=== PATIENT | male | born 1960 | race African-American/Black ===

== ENCOUNTER 2023-04-04 18:33 | Emergency (ER) | payer MEDICAID ==
[~2023-04-04] VITALS: Ht 170.2 cm; Wt 115.2 kg
[2023-04-04] MEDS ORDERED: KETOROLAC TROMETH 60MG/2ML VIAL IM ONE (18:45)
[2023-04-04] MEDS ORDERED: IBUP-1455 PO (20:09)
[2023-04-04] MEDS ORDERED: HYDR-4798 PO (20:09)
[2023-04-04 20:44] VITALS: BP 128/75; PULSE 100; RESP 18; TEMP 98; O2SAT 95
== END 2023-04-04 21:05 | disposition home or self-care (01) ==
LOC: ER 18:33
DX: S83.8X2A Sprain of other specified parts of left knee, initial encounter (principal); E11.9 Type 2 diabetes mellitus without complications; W18.39XA Other fall on same level, initial encounter; Y93.89 Activity, other specified; Y92.096 Garden or yard of other non-institutional residence as the place of occurrence of the external cause; Y99.0 Civilian activity done for income or pay
CPT/HCPCS: 73562; 96372; 99283; J1885

== ENCOUNTER 2023-05-01 20:25 | Emergency (ER) | payer MEDICAID ==
[~2023-05-01 20:25] MED LIST: HYDR-4798 PO; IBUP-1455 PO
[2023-05-01 21:23] VITALS: PULSE 110
[2023-05-01 22:38] VITALS: BP 123/86; RESP 18; O2SAT 95
[2023-05-01] MEDS ORDERED: ACETAMINOPHEN 500 MG TAB PO ONE (23:00)
[2023-05-02] MEDS ORDERED: HYDR-4902 PO (01:12)
== END 2023-05-02 02:23 | disposition home or self-care (01) ==
LOC: ER 20:25
DX: S82.892A Other fracture of left lower leg, initial encounter for closed fracture (principal); S83.92XA Sprain of unspecified site of left knee, initial encounter; E11.9 Type 2 diabetes mellitus without complications; W18.2XXA Fall in (into) shower or empty bathtub, initial encounter; Y93.89 Activity, other specified; Y92.89 Other specified places as the place of occurrence of the external cause; Y99.8 Other external cause status
CPT/HCPCS: 29515; 72070; 73560; 73600

== ENCOUNTER 2024-11-09 03:21 | Emergency (ER) | payer MEDICAID ==
[~2024-11-09] VITALS: Ht 170.2 cm; Wt 115.2 kg
[2024-11-09 03:38] VITALS: TEMP 97.6
[2024-11-09 03:40] VITALS: O2SAT 94
--- NOTE | 2024-11-09 03:56 | ED.PDOC ---
History of Present Illness HPI Comments This is a 64-year-old, morbidly obese male that is brought in by ambulance for complaint of right chest wall and rib pain status post multiple mechanical falls, today. Per EMS report, patient endorses on having 2 mechanical falls, this morning. He states on having his 1st fall at 0030, while taking a shower, where he slipped and fell onto his right side. Patient then states on getting up and continuing on with his day until he became, suddenly, lightheaded when returning to his bathroom 45 minutes later and falling onto his right side, again, after failing to catch himself with nearby shower handle. Patient denies sustaining any head or additional injuries in addition to losing consciousness then and rated pain, initially, an 8/10. At time of initial assessment, patient endorses on pain, now, being a 2/10 after being given 100mcg of fentanyl en route by EMS. Patient denies having any headache, dizziness, weakness, numbness, tingling, or other associated symptoms were modifiers at this time. Chief Complaint: Fall Injury Time Seen by MD: 03:40 Primary Care Provider: Angel Reviewed Notes: Nurses Notes, Job Placement Specialist Notes, Medications, Allergies Allergies: Coded Allergies: NO KNOWN ALLERGIES (Unverified , 01/28/16) Home Meds Active Scripts Hydrocodone-Acetaminophen (Hydrocodone Bitartrate/AC 10-325 mg) 1 Tab Tab, 1 TAB PO Q8HP PRN, #10 TAB Prov:ERICA MENDIOLA PAC 04/04/23 Ibuprofen Micronized (Ibuprofen) 800 Mg Tab, 800 MG PO Q8HP PRN, #20 TAB Prov:ERICA MENDIOLA PAC 04/04/23 Information Source: Patient, Emergency Med Personnel Mode of Arrival: EMS Severity: Moderate Timing: Hours Duration: Since onset Prehospital treatment: 12 Lead EKG, Milk Tester, Pain Meds (100 mcg of fentanyl) Past Medical History PAST MEDICAL HISTORY: DM Past Medical History (Other): Morbid obesity Surgical History: Denies all surgeries Family History Family History: Unknown Social History Smoker: Non-Smoker Alcohol: Denies ETOH Use Drugs: Denies Drug Use Lives In: Home All Other Systems: Reviewed and Negative (Comprehensive systems review obtained and negative except for what is stated in the HPI.) Physical Exam General Appearance: No Apparent Distress, Obese HEENT: Normal ENT Inspection, Pharynx Normal, TMs Normal Neck: Full Range of Motion, Non-Tender, Normal, Normal Inspection Respiratory: Chest Non-Tender, Lungs Clear, No Accessory Muscle Use, No Respi ratory Distress, Normal Breath Sounds Cardiovascular: No Edema, No JVD, No Murmur, No Gallop, Normal Peripheral Pulses, Regular Rate/Rhythm Breast Exam: Deferred Gastrointestinal: No Organomegaly, Non Tender, No Pulsatile Mass, Normal Bowel Sounds, Soft Genitalia: Deferred Pelvic: Deferred Rectal: Deferred Extremities: No calf tenderness, Normal capillary refill, Normal inspection, Normal range of motion, Non-tender, No pedal edema Musculoskeletal : Location: Right Extremity Location: Chest Apperance: Normal, Tenderness Neurologic: Alert, casting machine operator automatic II-XII nml as Tested, No Motor Deficits, Normal Affect, Normal Mood, No Sensory Deficits Cerebellar Function: Normal Reflexes: Normal Skin: Dry, Normal Color, Warm Lymphatic: No Adenopathy Was a procedure done? Was a procedure done?: No EKG EKG : Pulse Rate (adult): 99 Mobile: Normal Cardiac Rhythm: NSR Block: None Hypertrophy: None ST: Normal Differential Dx Considerations may include: Fractures, contusions, bruising, muscle sprain, history of frequent falls, among others X-Ray, Labs, Meds, VS Vital Signs Date Time Temp Pulse Resp B/P (MAP) Pulse Ox O2 Delivery O2 Flow Rate FiO2 11/09/24 03:56 99 11/09/24 03:40 99 11/09/24 03:38 97.6 92 15 133/75 (94) 96 97.6 11/09/24 03:30 97.6 100 14 133/79 (97) [address] [place] [address] Ph: [phone] DIAGNOSTIC IMAGING Diagnostic Imaging Report : [id number] Signed PATIENT: BRIT TOBIN ACCT: [id number] UNIT: [id number] : 1960 LOC: ER ROOM / BED: / AGE / SEX: 64 / M ADM STATUS: REG ER SERVICE [id number] ORDERING PHYSICIAN: ELLI MATHIAS MD PROCEDURE(s): RRIBS - R RIB XRAY REASON: FALL ORDER NUMBER(s): [id number], ACCESSION NUMBER(s): [id number] EXAMINATION: XY R RIB XRAY INDICATION: FALL COMPARISON: None TECHNIQUE: Frontal view of the chest and oblique views of the right ribs history FINDINGS: Mild hazy bilateral opacities. No pleural effusion or significant pneumothorax. Normal cardiomediastinal silhouette. Acute nondisplaced displaced right 8th rib fracture. IMPRESSION: 1. No acute cardiopulmonary disease. Acute nondisplaced right 8th rib fracture. ATED BY: KARLA BABCOCK MD DICTATED DATE/TIME: 11/09/24512 SIGNED BY: KARLA BABCOCK MD SIGNED DATE/TIME: 11/09/24512 CC: Time of 1ST Reevaluation: 04:10 Reevaluation 1ST: Unchanged Patient Education/Counseling: Diagnosis, Treatment Family Education/Counseling: No Family Present Additional Information Previous visit documents reviewed: 04/11/2023 The following tests were ordered, and results were reviewed by me: EKG, CXR, right rib x-ray Additional Information was gathered from interviewing the following independent historians: EMS I reviewed and agreed with the following test results read by other providers: CXR, right rib x-ray I discussed treatment and results with medical personnel and: patient Departure 1 Departure Time of Disposition: 05:37 (Patient has a right 8th rib fracture. No other injuries. We will discharge patient home with outpatient follow up) Impression: Primary Impression: Rib fracture Qualified Codes: S22.31XA - Fracture of one rib, right side, initial encounter for closed fracture Disposition: HOME / SELF CARE / HOMELESS Condition: Stable Additional Instructions: You broke your right 8th rib. It is important that you continue to take deep breaths. You were prescribed lidocaine patches. For pain you can take the followinam: Ibuprofen 400mg with food Noon: Acetaminophen 1000mg 4pm: Ibuprofen 400mg with food 8pm: Acetaminophen 1000mg You should follow up with your regular doctor within one week to ensure you are doing better. If your symptoms worsen or you have any other concerns then please return to the ER. e-Prescriptions Lidocaine (LIDODERM 5% TOPICAL PATCH) 1 Patch Ph 1 PATCH TOP DAILY PRN for 14 Days, #30 PATCH 1 Refill Prov: ELLI MATHIAS MD 11/09/24 Discharged With: Self Critical Care Note Critical Care Time?: No Stability Stability form required: No Heart Score Heart Score: Heart Score Response (Comments) Value History N/A 0 EKG N/A 0 Age N/A 0 Risk Factors N/A 0 Troponin N/A 0 Total 0 I personally scribed for ELLI MATHIAS MD ([email or web address]) on 11/09/24 at 03:56. Electronically submitted by Nishant Mccoy ([email or web address]). I personally scribed for ELLI MATHIAS MD ([email or web address]) on 11/09/24 at 05:33. Electronically submitted by Nishant Mccoy ([email or web address]). ELLI MATHIAS MD Nov 09, 2024 03:56
--- NOTE | 2024-11-09 04:30 | ECG ---
[facility] Test Date: 2024-11-09 Test Time: 03:40:30 Pat Name: BRIT TOBIN Department: ER Room: Gender: M Doctor Podiatric Medicine: ER : 1960 Requested By: ELLI MATHIAS Order Number: [id number] Reading MD: Dilan Henriquez Measurements Intervals [place] Rate: 99 P: 20 [place]: 182 QRS: -52 QRSD: 94 T: 29 QT: 338 QTc: 434 Interpretive Statements Sinus rhythm Left anterior fascicular block Abnormal R-wave progression, late transition Borderline ST elevation, lateral leads Electronically Signed On 11-11-2024 17:57:56 PST by Dilan Henriquez Please click the below link to view image of tracing.
--- NOTE | 2024-11-09 05:15 | DVH ---
EXAMINATION: XY R RIB XRAY INDICATION: FALL COMPARISON: None TECHNIQUE: Frontal view of the chest and oblique views of the right ribs history FINDINGS: Mild hazy bilateral opacities. No pleural effusion or significant pneumothorax. Normal cardiomediast inal silhouette. Acute nondisplaced displaced right 8th rib fracture. IMPRESSION: 1. No acute cardiopulmonary disease. Acute nondisplaced right 8th rib fracture.
[2024-11-09] MEDS ORDERED: LIDO5DIS21 TOP (05:39)
[2024-11-09 06:00] VITALS: BP 96/70; PULSE 92; RESP 12; O2SAT 94
== END 2024-11-09 06:13 | disposition home or self-care (01) ==
LOC: EDBD 03:21 → ER 03:24
DX: S22.31XA Fracture of one rib, right side, initial encounter for closed fracture (principal); E11.9 Type 2 diabetes mellitus without complications; W18.2XXA Fall in (into) shower or empty bathtub, initial encounter; Y93.E1 Activity, personal bathing and showering; Y92.89 Other specified places as the place of occurrence of the external cause; Y99.8 Other external cause status
CPT/HCPCS: 71101; 93005

== ENCOUNTER 2025-01-29 20:45 | Emergency (ER) | payer MEDICAID ==
[~2025-01-29] VITALS: Ht 170.2 cm; Wt 117.1 kg
[~2025-01-29 20:45] MED LIST changes: +LIDO5DIS21 TOP
[2025-01-29 21:05] VITALS: TEMP 97.8
--- NOTE | 2025-01-29 21:28 | ED.PDOC ---
HPI (NEURO) HPI Comments Vitals: Temp: 97.8 F BP: 140/69 HR: 97 SPO2: 97% RA RR: 18 Past medical history: DM, kidney disease Past surgical history: Denies TOBIN: RIGHT SIDED HEADACHE AND TOOTHACHE HPI: Poor Historian. 64-year-old male presents to emergency department for evaluation of right-sided headache that started yesterday. Pain is constant nonradiating. No other associated symptoms. No alleviating or precipitating factors. Denies any neurological deficits or complaints. Patient also complains of his right lower molar tooth pain. The pain is throbbing and he thinks it might be contributing to his headache. REVIEW OF SYSTEMS: CONSTITUTIONAL: Denies acute: fever, diaphoresis, chills, generalized weakness. HEAD: Denies acute: , photophobia Eyes: Denies acute: Double vision, vision loss, eye pain, eye discharge. EARS: Denies acute: tinnitus, hearing loss, ear discharge, ear pain, THROAT: Denies acute: sore throat, swelling, difficulty swallowing , pain with swallowing, change in voice. NECK: Denies acute: neck pain, neck swelling, stiff neck. HEART: Denies acute : chest pain, palpitations, LUNGS: Denies acute: SOB, wheezing, cough, hemoptysis ABDOMEN: Denies acute: abdominal pain, Nausea, Vomiting, diarrhea, melena , hematemesis, hematochezia SKIN: Denies acute: rash, redness, lesions, itchiness. EXTREMITIES: Denies acute: calf pain, numbness, tingling, weakness, denies pain in extremity. Denies acute: Low back pain. Neuro: Denies acute: focal neurological deficit, motor or sensory focal neurological deficit, tremors, seizure like activity, confusion, dizziness, change in mental status, loss of bowel or bladder function, cauda equina like symptoms. : Denies acute: dysuria, hematuria, flank pain, increase in urinary frequency. PSYCH: Denies acute: hallucination, suicidal ideation, homicidal ideation. PHYSICAL EXAM: General: -----mild---acute distress, awake and alert. Head: normocephalic, atraumatic. Neck: supple, trachea is midline, no swelling. Throat: Normal phonation. No obstruction, no erythema. Evaluation of the focal area of pain. Patient points to his last molar tooth on the right jaw that is tender to palpation. No associated erythema or apparent purulent discharge. No swelling. Poor dentition and cavities noted in the affected tooth. Eyes:, no erythema, no purulent discharge, no proptosis, no icterus. Heart: regular rate, regular rhythm, no significant murmur appreciated. Lungs: no apparent respiratory distress, Able to speak in full sentences. No wheezing, no rhonchi, no crackles. No stridors Clear to auscultation bilaterally. Abdomen: non tender to palpation, non distended, soft, no guarding, no rebound, + bowel sounds. Obese Neuro: Awake, Alert, oriented to name, self, situation, follows commands GCS=15. Speech is normal. Skin: no petechia, no purpura, no cyanosis, non-pale, not jaundice. Lower extremities: --1/4 b/l- Pitting edema no deformity, no focal swelling, no calf TTP. Makes eye contact. moves all four extremities. Face: no apparent facial droop. Ambulating in the ED independently. No nuchal rigidity, Kernig's sign, Brudzinski's sign, no meningeal signs. ED COURSE: Chief Complaint: Headache Time Seen by MD: 21:15 Primary Care Provider: Angel Reviewed Notes: Nurses Notes, Allergies Information Source: Patient Mode of Arrival: Ambulatory Past Medical History PAST MEDICAL HISTORY: DM Surgical History: Denies all surgeries Family History Family History: Unknown Social History Smoker: Non-Smoker Alcohol: Denies ETOH Use Drugs: Denies Drug Use Lives In: Home Was a procedure done? Was a procedure done?: No Differential Diagnosis (SZ) Seizure: N/A Headache: Cluster, Migraine, Subdural Hemorrhage, Other (DDX include Sinusitis, migraine, meningitis, hypertension, intracranial mass/bleed, stroke, radiculopathy, vertebrobasillary insufficiency, cephalgia, pseudotumor cerebri, cerebellar ischemia/infarct, carotid stenosis, lacunar infarct, vertebral/carotid artery dissection, hydrocephalus, temporal arteritis, dura venous sinus thrombosis.) X-Ray, Labs, Meds, VS Vital Signs Date Time Temp Pulse Resp B/P (MAP) Pulse Ox O2 Delivery O2 Flow Rate FiO2 01/29/25 21:55 82 16 112/67 (82) 96 01/29/25 21:05 97.8 97 18 140/69 (92) 97 97.8 Lab Test 01/29/25 22:16 01/29/25 21:26 Range/Units Troponin I High Sensitivity < 3 L < 3 L </=54 ng/L White Blood Count 6.4 4.4-10.8 10^3/uL Red Blood Count 5.57 4.5-5.90 10^6/uL Hemoglobin 14.4 13.5-17.5 g/dL Hematocrit 45.6 41.0-53.0 % Mean Corpuscular Volume 81.9 80.0-100.0 fL Mean Corpuscular Hemoglobin 25.9 L 28.0-32.0 pg Mean Corpuscular Hemoglobin Concent 31.6 L 32.0-36.0 g/dL Red Cell Distribution Width 15.9 H 11.8-14.3 % Platelet Count 267 140-450 10^3/uL Mean Platelet Volume 7.8 6.9-10.8 fL Neutrophils (%) (Auto) 56.2 37.0-80.0 % Lymphocytes (%) (Auto) 31.1 10.0-50.0 % Monocytes (%) (Auto) 10.3 0.0-12.0 % Eosinophils (%) (Auto) 0.9 0.0-7.0 % Basophils (%) (Auto) 1.5 0.0-2.0 % Neutrophils # (Auto) 3.6 1.6-8.6 10 ^3/uL Lymphocytes # (Auto) 2.0 0.4-5.4 10 ^3/uL Monocytes # (Auto) 0.7 0-1.3 10 ^3/uL Eosinophils # (Auto) 0.1 0-0.8 10 ^3/uL Basophils # (Auto) 0.1 0-0.2 10 ^3/uL Nucleated Red Blood Cells 0.0 % Erythrocyte Sedimentation Rate 3 0-20 mm/hr Sodium Level 142 136-145 mmol/L Potassium Level 4.7 3.5-5.1 mmol/L Chloride Level 105 98-107 mmol/L Carbon Dioxide Level 29 20-31 mmol/L Anion Gap 8 5-15 Blood Urea Nitrogen 18 9-23 mg/dL Creatinine 2.18 H 0.700-1.30 mg/dL Glomerular Filtration Rate Calc 33 >90 mL/min BUN/Creatinine Ratio 8.3 L 10.0-20.0 Serum Glucose 236 H 74-106 mg/dL Calcium Level 9.5 8.7-10.4 mg/dL Total Bilirubin 0.2 0.2-1.0 mg/dL Aspartate Amino Transferase (AST) 13 13-40 U/L Alanine Aminotransferase (ALT) 11 7-40 U/L Alkaline Phosphatase 47 46-116 U/L Total Protein 7.0 5.7-8.2 g/dL Albumin 4.3 3.2-4.8 g/dL Current Medications Medications (Trade) Dose Ordered Sig/Crow Route Start Time Stop Time Status Last Admin Acetaminophen/ Hydrocodone Bitart ([place] 5/325MG Tab) 1 tab ONCE ONCE PO 01/29/25 21:15 01/29/25 21:16 DC 01/29/25 23:10 [place] [address] Ph: [phone] DIAGNOSTIC IMAGING Diagnostic Imaging Report : [id number] Signed PATIENT: BRIT TOBIN ACCT: [id number] UNIT: [id number] : 1960 LOC: ER ROOM / BED: / AGE / SEX: 64 / M ADM STATUS: REG ER SERVICE 00 ORDERING PHYSICIAN: LEANDRO VERA DO PROCEDURE(s): HWOCT - HEAD WITHOUT CONTRAST REASON: R HEADACHE ORDER NUMBER(s): [id number], ACCESSION NUMBER(s): [id number] EXAM: CT HEAD WITHOUT CONTRAST INDICATION: R HEADACHE TECHNIQUE: CT of the head without intravenous contrast. Radiation Dose Information: CT Dose: CTDI volume is 58.07 mGy. Dose-length product is 1047.05Dose Length] mGy*cm The dose indicators for CT are the volume Computed Tomography (CT) Dose Index (CTDIvol) and the Dose Length Product (DLP), and are measured in units of mGy and mGy-cm, respectively. These indicators are not patient dose, but values generated from the CT scanner acquisition factors. The report includes radiation exposure data for exposures received during this examination. COMPARISON: None FINDINGS: There is no evidence of acute intracranial hemorrhage, extra-axial collection, mass effect, midline shift, herniation or hydrocephalus. The ventricles, sulci and cisterns are age appropriate. The case-white differentiation is intact. Patchy periventricular and subcortical white matter hypoattenuation is nonspecific but may be related to small vessel ischemic disease. The visualized paranasal sinuses and mastoid air cells are clear. The surrounding soft tissues and osseous structures are unremarkable. IMPRESSION: 1. No acute intracranial hemorrhage. 2. No CT findings of paranasal sinus or mastoid disease. 3. No CT findings of territorial ischemia. ATED BY: BROOKE CALVERT Jr., DO DICTATED DATE/TIME: 01/29/252129 SIGNED BY: BROOKE CALVERT Jr., DO SIGNED DATE/TIME: 01/29/252129 CC: [place] [address] Ph: [phone] DIAGNOSTIC IMAGING Diagnostic Imaging Report : [id number] Signed PATIENT: BRIT TOBIN ACCT: [id number] UNIT: [id number] : 1960 LOC: ER ROOM / BED: / AGE / SEX: 64 / M ADM STATUS: REG ER SERVICE 09 ORDERING PHYSICIAN: LEANDRO VERA DO PROCEDURE(s): FAC2C - MAXILLOFACIAL WITHOUT REASON: FACIAL PAIN ORDER NUMBER(s): [id number], ACCESSION NUMBER(s): [id number] HISTORY: FACIAL PAIN TECHNIQUE: Nonenhanced axial images through the facial bones with coronal and sagittal MPR. Radiation Dose Information: CT Dose: CTDI volume is 66.97 mGy. Dose-length product is 1279.92 mGy*cm COMPARISON: None FINDINGS: Soft tissues: Unremarkable Mandible: Unremarkable Maxilla: Unremarkable Zygomatic arches: Unremarkable Nasal bone: Unremarkable Orbits: Unremarkable Paranasal Sinuses / Mastoid air cells / Middle ear cavities: Clear IMPRESSION: No facial fracture. Radiation optimization: All CT scans at this facility use at least one of these dose optimization techniques: automated exposure control mA and/or kV adjustment per patient size (includes targeted exams where dose is matched to clinical indication) or iterative reconstruction. ATED BY: SHAYAN HAQUE MD DICTATED DATE/TIME: 01/29/252138 SIGNED BY: SHAYAN HAQUE MD SIGNED DATE/TIME: 01/29/252138 CC: Time of 1ST Reevaluation: 21:27 Reevaluation 1ST: Unchanged Patient Education/Counseling: Diagnosis, Treatment, Prognosis Family Education/Counseling: No Family Present Comments Patient presented with the above HPI.--headache likely secondary to tooth pain----workup was initiated. patient was found with the above mentioned diagnosis. the following medications were ordered: please refer to order lists of meds and tests obtained by myself Dr. Vera. Patient ED course and VS have been stabilized. Patient has been reassessed in the ED and remained in a stable condition. Pertinent incidental findings were discussed with the patient and/or family. Patient/family voices understanding and is agreeable with plan. Patient has been observed in the ED adequate length of time to insure improveme nt/stability. Escalation of care considered: Consideration of escalation to observation or admission Patient is neurologically intact. Patient was DISCHARGED home in a stable condition. All the reports of any imaging studies that were ordered by myself were reviewed by myself. Departure 1 Departure Time of Disposition: 22:49 Impression: Primary Impression: Tooth pain Additional Impression: Headache Disposition: 01 HOME / SELF CARE / HOMELESS Condition: Stable Additional Instructions: Additional instructions: You MUST follow-up with your primary care/family doctor in 1 to 2 days. If you are unable to see your primary care/family doctor, please return to our emergency room for re-assessment and re-evaluation in 1 to 2 days. Return to the emergency room here in our facility or to the nearest ER [facility] if your symptoms change or worsen. CONSULTATIONS: you MUST Follow-up for consultation as soon as possible with: DrAbigail-dentistry and neurology in 1-2 days. Please call for appointment. You MUST call the consultants office yourself to make an appointment. You may need to arrange that through your insurance and/or your primary/family doctor. If you are unable to see the consultant intern in 1 to 2 days, you must return to our emergency room (or any other ER of your choice) for re-assessment and re- evaluation. Adequate fluid hydration. Use Tylenol as instructed for pain control. e-Prescriptions Amoxicillin & Pot Clavulanate (AUGMENTIN TABLET) 875 Mg Tb 875 MG PO BID for 7 Days, #14 TAB Prov: LEANDRO VERA DO 01/29/25 Discharged With: Self Critical Care Note Critical Care Time?: No I personally scribed for LEANDRO VERA DO ([email or web address]) on 01/29/25 at 21:28. Electronically submitted by Bee Gomez ([facility]). I personally scribed for LEANDRO VERA DO ([email or web address]) on 01/29/25 at 21:45. Electronically submitted by Bee Gomez ([facility]). LEANDRO VERA DO January 29, 2025 21:28
--- NOTE | 2025-01-29 21:32 | DVH ---
EXAM: CT HEAD WITHOUT CONTRAST INDICATION: R HEADACHE TECHNIQUE: CT of the head without intravenous contrast. Radiation Dose Information: CT Dose: CTDI volume is 58.07 mGy. Dose-length product is 1047.05Dose Nabor gth] mGy*cm The dose indicators for CT are the volume Computed Tomography (CT) Dose Index (CTDIvol) and the Dose Length Product (DLP), and are measured in units of mGy and mGy-cm, respectively. These indicators are not patient dose, but values generated from the CT scanner acquisition factors. The report includes radiation exposure data for exposures received during this examination. COMPARISON: None FINDINGS: There is no evidence of acute intracranial hemorrhage, extra-axial collection, mass effect, midline s hift, herniation or hydrocephalus. The ventricles, sulci and cisterns are age appropriate. The case-white differentiation is intact. Patchy periventricular and subcortical white matter hypoattenuation is nonspecific but may be related to small vessel ischemic disease. The visualized paranasal sinuses and mastoid air cells are clear. The surrounding soft tissues and osseous structures are unremarkable. IMPRESSION: 1. No acute intracranial hemorrhage. 2. No CT findings of paranasal sinus or mastoid disease. 3. No CT findings of territorial ischemia.
[2025-01-29 21:35] LABS: Basophils # (auto) 0.1 10 ^3/uL (0-0.2); Basophils % (auto) 1.5 % (0.0-2.0); Eosinophils # (auto) 0.1 10 ^3/uL (0-0.8); Eosinophils % (auto) 0.9 % (0.0-7.0); Hematocrit 45.6 % (41.0-53.0); Hemoglobin 14.4 g/dL (13.5-17.5); Lymphocytes % (auto) 31.1 % (10.0-50.0); Mean Corpuscular Hemoglobin 25.9 pg (28.0-32.0); Mean Corpuscular Hgb Conc. 31.6 g/dL (32.0-36.0); Mean Corpuscular Volume 81.9 fL (80.0-100.0); Monocytes # (auto) 0.7 10 ^3/uL (0-1.3); Monocytes % (auto) 10.3 % (0.0-12.0); Neutrophils # (auto) 3.6 10 ^3/uL (1.6-8.6); Neutrophils % (auto) 56.2 % (37.0-80.0); Platelet Count (auto) 267 10^3/uL (140-450); Red Blood Cells 5.57 10^6/uL (4.5-5.90); Red Cell Distribution Width 15.9 % (11.8-14.3); White Blood Cell 6.4 10^3/uL (4.4-10.8)
--- NOTE | 2025-01-29 21:41 | DVH ---
HISTORY: FACIAL PAIN TECHNIQUE: Nonenhanced axial images through the facial bones with coronal and sagittal MPR. Radiation Dose Information: CT Dose: CTDI volume is 66.97 mGy. Dose-length product is 1279.92 mGy*cm COMPARISON: None FINDINGS: Soft tissues: Unremarkable Mandible: Unremarkable Maxilla: Unremarkable Zygomatic arches: Unremarkable Nasal bone: Unremarkable Orbits: Unremarkable Paranasal Sinuses / Mastoid air cells / Middle ear cavities: Clear IMPRESSION: No facial fracture. Radiation optimization: All CT scans at this facility use at least one of these dose optimization rick hniques: automated exposure control mA and/or kV adjustment per patient size (includes targeted exam s where dose is matched to clinical indication) or iterative reconstruction.
[2025-01-29 21:52] LABS: Alanine Aminotransferase 11 U/L (7-40); Albumin 4.3 g/dL (3.2-4.8); Alkaline Phosphatase 47 U/L (46-116); Anion Gap 8 (5-15); BUN/Creatinine Ratio 8.3 (10.0-20.0); Blood Urea Nitrogen 18 mg/dL (9-23); Calcium 9.5 mg/dL (8.7-10.4); Carbon Dioxide 29 mmol/L (20-31); Chloride 105 mmol/L (98-107); Potassium 4.7 mmol/L (3.5-5.1); Sodium 142 mmol/L (136-145)
[2025-01-29 21:55] VITALS: BP 112/67; PULSE 82; RESP 16; O2SAT 96
[2025-01-29 21:55] LABS: Aspartate Aminotransferase 13 U/L (13-40); Bilirubin, Total 0.2 mg/dL (0.2-1.0); Glucose 236 mg/dL (74-106)
[2025-01-29 22:24] LABS: Erythrocyte Sedimentation Rate 3 mm/hr (0-20)
[2025-01-29] MEDS ORDERED: AUG875T PO (22:51)
[2025-01-29] MEDS: HYDROcodone-ACET 5/325MG TAB PO ONE (23:10)
== END 2025-01-29 23:32 | disposition home or self-care (01) ==
LOC: ER 20:49
DX: K08.89 Other specified disorders of teeth and supporting structures (principal); R51.9 Headache, unspecified; E11.9 Type 2 diabetes mellitus without complications
CPT/HCPCS: 36415; 70450; 70486; 80053; 84484; 85025; 85652

== ENCOUNTER 2025-05-14 18:31 | Emergency (ER) | payer MEDICAID ==
[~2025-05-14] VITALS: Ht 167.6 cm; Wt 121.7 kg
[~2025-05-14 18:31] MED LIST changes: +AUG875T PO
[2025-05-14 18:33] VITALS: BP 124/64; PULSE 94; RESP 16; TEMP 98.7; O2SAT 96
--- NOTE | 2025-05-14 19:25 | DVH ---
EXAM: XY R ELBOW 2V XRAY REASON FOR EXAM: pain r/o fx TECHNIQUE: 3 views of the right elbow are submitted. COMPARISON: None FINDINGS: The bones demonstrate grossly normal mineralization. There is no acute fracture or dislocat ion. There is no elbow effusion. There is moderate soft tissue swelling dorsal to the distal humerus. IMPRESSION: No acute fracture or dislocation.
== END 2025-05-14 22:29 | disposition left against medical advice (07) ==
LOC: ER 18:31
DX: M25.521 Pain in right elbow (principal); Z79.899 Other long term (current) drug therapy; Z53.21 Procedure and treatment not carried out due to patient leaving prior to being seen by health care provider
CPT/HCPCS: 73070

== ENCOUNTER 2025-05-27 03:25 | Emergency (ER) | payer MEDICAID ==
[~2025-05-27] VITALS: Ht 170.2 cm; Wt 120.4 kg
--- NOTE | 2025-05-27 03:42 | ED.PDOC ---
Back pain HPI HPI Comments 65-year-old male presents to the ED chief complaint elbow pain. Patient states injured his right elbow two weeks ago. He notes increasing pain, and swelling over the past several days. Has tried [id number] medications with little relief. He rates pain 8/10 on pain scale pressure type pain. He denies numbness, weakness or any other complaints. Chief Complaint: Upper Extremity Time Seen by MD: 03:35 Primary Care Provider: Angel Reviewed Notes: Nurses Notes, Medications, Allergies Allergies: Coded Allergies: NO KNOWN ALLERGIES (Unverified , 01/28/16) Home Meds Active Scripts Nabumetone (Nabumetone) 500 Mg Tab, 1 TAB PO BID PRN for 7 Days, #14 TAB Prov:OG HARKINS [employer] 05/27/25 Amoxicillin & Pot Clavulanate (AUGMENTIN TABLET) 875 Mg Tb, 875 MG PO BID for 5 Days, #10 TAB Prov:OG HARKINS [employer] 05/27/25 Amoxicillin & Pot Clavulanate (AUGMENTIN TABLET) 875 Mg Tb, 875 MG PO BID for 7 Days, #14 TAB Prov:LEANDRO VERA DO 01/29/25 Lidocaine (LIDODERM 5% TOPICAL PATCH) 1 Patch Ph, 1 PATCH TOP DAILY PRN for 14 Days, #30 PATCH 1 Refill Prov:ELLI MATHIAS MD 11/09/24 Hydrocodone-Acetaminophen (Hydrocodone Bitartrate/AC 10-325 mg) 1 Tab Tab, 1 TAB PO Q8HP PRN, #10 TAB Prov:ERICA MENDIOLA PAC 04/04/23 Ibuprofen Micronized (Ibuprofen) 800 Mg Tab, 800 MG PO Q8HP PRN, #20 TAB Prov:ERICA MENDIOLA PAC 04/04/23 Mode of Arrival: Ambulatory Past Medical History PAST MEDICAL HISTORY: DM Surgical History: Denies all surgeries Family History Family History: Unknown Social History Smoker: Non-Smoker Alcohol: Denies ETOH Use Drugs: Denies Drug Use Lives In: Home All Other Systems: Reviewed and Negative (see hpi) Physical Exam General Appearance: No Apparent Distress, Normal HEENT: Pharynx Normal Neck: Full Range of Motion, Non-Tender Respiratory: Lungs Clear, No Respiratory Distress, Normal Breath Sounds Cardiovascular: No Murmur, Normal Peripheral Pulses, Regular Rate/Rhythm Breast Exam: Deferred Gastrointestinal: Non Tender, Soft Genitalia: Deferred Pelvic: Deferred Rectal: Deferred Extremities: Normal capillary refill, Normal range of motion, No pedal edema Musculoskeletal : Location: Right Extremity Location: Elbow (Moderate edema about elbow no noted abrasions lesions or lacerations. Strength sensory motion intact arm with full range of motion with discomfort. Positive radial pulse.) Apperance: Normal Neurologic: Alert, No Motor Deficits, Normal Affect, Normal Mood, No Sensory Deficits Cerebellar Function: Normal Reflexes: NOT DONE Skin: Dry, Normal Color, Warm Lymphatic: No Adenopathy Was a procedure done? Was a procedure done?: Yes Sedation Sedation?: No Informed consent obtained: Yes Other Procedure Procedure Draiange of large hematoma right elbow Indication pain and edema Anesthetic none Prep betadine x 3 Success Drained 30MLS of blood Informed consent obtained: Yes Risks, benefits, and alternati: Yes Notes pt tolerted well with minimal blood loss Back Pain Differential Dx Differential Diagnosis: Fracture, Musculoskeletal Pain X-Ray, Labs, Meds, VS Vital Signs Date Time Temp Pulse Resp B/P (MAP) Pulse Ox O2 Delivery O2 Flow Rate FiO2 05/27/25 04:25 98.0 80 20 128/74 (92) 98 98.0 05/27/25 04:25 80 20 98 Room Air 05/27/25 03:28 97.0 84 18 134/78 96 97.0 Current Medications Medications (Trade) Dose Ordered Sig/Crow Route Start Time Stop Time Status Last Admin Acetaminophen/ Hydrocodone Bitart ([place] 5/325MG Tab) 1 tab ONCE ONCE PO 05/27/25 03:45 05/27/25 03:46 DC 05/27/25 04:16 Ketorolac Tromethamine (Toradol Injection) 30 mg ONCE ONCE IM 05/27/25 03:45 05/27/25 03:46 DC 05/27/25 04:16 X-Ray, Labs, Meds, VS Comment see procedure note pt given toradol 30mg im and 5mg of norco, reports moderate improvement, request ing discharge. valeria wrapped, ABX script w/ nsaid. advised to take medications as prescribed s/e discussed. f/u with pcp as needed. er return precautions given Time of 1ST Reevaluation: 03:42 Reevaluation 1ST: Unchanged Time of 2ND Reevaluation: 04:18 Reevaluation 2ND: Improved Patient Education/Counseling: Diagnosis, Treatment, Need For Follow Up Family Education/Counseling: Diagnosis, Treatment SEPSIS Sepsis Screen Date sepsis recognized/suspect: May 27, 2025 Time Sepsis recognized/suspect: 330 Recent Procedure: No On Antibiotic Therapy: No Respiratory Rate >20: No Heart Rate >90: No Temp<36 C (96.8 F) or >38.3 C: No SBP <90 or MAP <65 mmHG: No New Acute Mental Status Change: No Is the patient on CPAP, BIPAP,: No Physician Orders R Elbow 3 View Xray (05/27/25 03:37) Apply Ice To Affected Area (05/27/25 03:38) Vital Signs Date Time Temp Pulse Resp B/P (MAP) Pulse Ox O2 Delivery O2 Flow Rate FiO2 05/27/25 04:25 98.0 80 20 128/74 (92) 98 98.0 05/27/25 04:25 80 20 98 Room Air 05/27/25 03:28 97.0 84 18 134/78 96 97.0 Medications Medications Dose Ordered Sig/Crow Route Start Time Stop Time Status Last Admin Dose Admin Acetaminophen/ Hydrocodone Bitart 1 tab ONCE ONCE PO 05/27/25 03:45 05/27/25 03:46 DC 05/27/25 04:16 Ketorolac Tromethamine 30 mg ONCE ONCE IM 05/27/25 03:45 05/27/25 03:46 DC 05/27/25 04:16 Departure 1 Departure Time of Disposition: 04:23 Impression: Primary Impression: Traumatic hematoma of elbow Qualified Codes: S50.01XA - Contusion of right elbow, initial encounter Disposition: HOME / SELF CARE / HOMELESS Condition: Stable e-Prescriptions Nabumetone (Nabumetone) 500 Mg Tab 1 TAB PO BID PRN for 7 Days, #14 TAB Prov: OG HARKINS 05/27/25 Amoxicillin & Pot Clavulanate (AUGMENTIN TABLET) 875 Mg Tb 875 MG PO BID for 5 Days, #10 TAB Prov: OG HARKINS 05/27/25 Discharged With: Significant Other Critical Care Note Critical Care Time?: No Stability Stability form required: No OG HARKINS May 27, 2025 03:42
--- NOTE | 2025-05-27 04:11 | DVH ---
CLINICAL INDICATION: Injury with swelling and pain TECHNIQUE: XY R ELBOW 3 VIEW XRAY Comparison: XY R ELBOW 2V XRAY on DOS: 05/14/25 FINDINGS/IMPRESSION: : There is no evidence of acute fracture or dislocation. Moderate proximal dorsal forearm soft tissue swelling. Soft tissues are otherwise unremarkable.
[2025-05-27] MEDS: KETOROLAC TROMETH 60MG/2ML VIAL IM ONE (04:16)
[2025-05-27] MEDS: HYDROcodone-ACET 5/325MG TAB PO ONE (04:16)
[2025-05-27 04:25] VITALS: BP 128/74; PULSE 80; RESP 20; TEMP 98; O2SAT 98
[2025-05-27] MEDS ORDERED: NABU-72 PO (04:25)
[2025-05-27] MEDS ORDERED: AUG875T PO (04:25)
== END 2025-05-27 04:30 | disposition home or self-care (01) ==
LOC: ER 03:25
DX: S50.01XA Contusion of right elbow, initial encounter (principal); X58.XXXA Exposure to other specified factors, initial encounter; Y93.89 Activity, other specified; Y92.89 Other specified places as the place of occurrence of the external cause; Y99.8 Other external cause status
CPT/HCPCS: 10140; 73080; 96372; 99284; J1885